=== PATIENT | female | born 1990 | race Caucasian/White ===

== ENCOUNTER 2024-01-20 11:00 | Outpatient (CLI) | payer MEDICARE, MEDICAID | END 2024-01-20 23:59 | disposition home or self-care (01) | LOC: RAD 11:00 | PROVIDERS: ATTEND Physician Assistant | DX: N20.0 Calculus of kidney (principal); K57.30 Diverticulosis of large intestine without perforation or abscess without bleeding | CPT/HCPCS: 74176 ==

== ENCOUNTER 2025-01-15 12:22 | Outpatient (CLI) | payer MEDICARE, MEDICAID ==
--- NOTE | 2025-01-16 07:57 | CARDIOLOGY REPORT ---
APPROVED REPORT EXAM: Comprehensive 2D, Doppler, and color-flow Echocardiogram. 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 144.4 cm/s AoV VTI 25.5 cm AO Peak GR. 8.5 mmHg AO Mean GR. 5 mmHg LVOT VTI 20.81 cm LVOT Peak Brandon. 120.2 cm/s TOMAS (VMAX) 2.35 cm2 TOMAS (VTI) 2.30 cm2 Mitral Valve MV E Velocity 101.3 cm/s MV DECEL TIME 230 ms MV A Velocity 95.8 cm/s MV PHT 62 ms E/A Ratio 1.1 MVA (PHT) 3.53 cm2 TDI E/Medial E' 9.4 Tricuspid Valve TR P. Velocity 135 cm/s TR Peak Gr. 7 mmHg Pulmonary Vein S2 Velocity 43.88 cm/s PVa [id number] msec LEFT VENTRICLE Normal LV size and wall thickness. Overall systolic function is low normal. LVEF is 55%. RIGHT VENTRICLE RV is normal size and function. ATRIA The left atrium size is normal. AORTIC VALVE Trileaflet AV appears mildly sclerotic without stenosis insufficiency. MITRAL VALVE Mild MV annular calcification without stenosis. Trace regurgitation. TRICUSPID VALVE TV appears structurally normal with trace regurgitation. PULMONIC VALVE Normal PV without stenosis, physiologic insufficiency. GREAT VESSELS Aortic root is normal in size. Ascending aorta is normal in size. PERICARDIUM Normal pericardium. No effusion. Other Information Study Quality: Adequate Conclusion Normal LV size and wall thickness. Overall systolic function is low normal. LVEF is 55%. RV is normal size and function. The left atrium size is normal. Trileaflet AV appears mildly sclerotic without stenosis insufficiency. Mild MV annular calcification without stenosis. Trace regurgitation. TV appears structurally normal with trace regurgitation. Normal pericardium. No effusion.
== END 2025-01-15 23:59 | disposition home or self-care (01) ==
LOC: RAD 12:22
PROVIDERS: ATTEND Physician Assistant
DX: Z15.89 Genetic susceptibility to other disease (principal); E66.01 Morbid (severe) obesity due to excess calories
CPT/HCPCS: 93306

== ENCOUNTER 2025-05-10 13:48 | Outpatient (CLI) | payer MEDICARE, MEDICAID ==
--- NOTE | 2025-05-12 19:42 | CONSULTATION ---
DATE OF CONSULTATION: 05/10/2025 DICTATING PHYSICIAN: Jazzy Zhao M.S., [facility] MODIFIED BARIUM SWALLOW STUDY REPORT REFERRING PHYSICIAN: Soraida Morgan PA-C. HISTORY OF PRESENT ILLNESS: The patient is a 35-year-old female and consents to this evaluation. In history obtained from the patient, the pt's mom and medical records, the patient reports symptoms of dysphagia including choking on food items a few times per year. The patient has a hard time with masticating with her mouth closed. She has had a history of dysphagia, having had a swallow study when she was less than 11 years old. The patient was on thickened liquids for a period of time, but is now on thin liquids. Her mom modifies her food items by cutting items such as steak into smaller pieces. The patient will begin to feel as if food items are stuck at the level of her larynx and then she produces stringy saliva or her emesis contains thoroughly chewed up food. MEDICATIONS: Prozac, Jencycla once daily orally, azelastine nasal spray, vitamin B12, vitamin D, multivitamin, fiber. CURRENT DIET: In terms of caffeine, the patient has diet Pepsi once weekly. She does not utilize tobacco products or drink alcohol. She consumes chocolate twice weekly. The patient has plant-based milk products and ice cream products. A typical breakfast consists of cereal. She snacks during the day on items such as cookies. A typical lunch is a sandwich. Dinner is eaten at 6:00 p.m. and may be something such as meatloaf, steak, hamburgers, or fettuccine. She has a dessert of ice cream sandwiches and goes to bed at 10 p.m. PARAMETERS: The patient is seated in a lateral 90-degree view and administered the usual protocol of thin and nectar-thick liquids, pureed and solid consistencies, as well as self-regulated boluses of thin liquids from the cup. RESULTS: In the oral stage of the swallow, lingual strength was mildly reduced. The patient utilized a lingual rocking motion to propel the bolus from the anterior to posterior oral cavity. It was noted that in 1 out of 2 administrations of the solid consistency, the patient utilized a very quick swallow with minimal mastication. There was no oral residue noted after the tail of the bolus passed for the liquid boluses, but for the solid bolus, the patient required 2 swallows. In the pharyngeal stage of the swallow, tongue base retraction was within functional limits. Swallow initiation was within functional limits. Anterior movement of the posterior pharyngeal wall was observed. Elevation of the hyothyroid complex was accomplished with full range of motion. There was no pharyngeal residue noted after the tail of the bolus passed. PES opening was within functional limits and at no time was the patient noted to penetrate or aspirate on any of the bolus sizes or consistencies. ANTERIOR-POSTERIOR VIEW: In the AP plane, the bolus split symmetrically between the piriform sinuses and there was proximal movement noted to the level of the clavicle. IMPRESSION: The patient demonstrates a mild oral swallowing disorder characterized by quickened mastication time. The patient also demonstrates a moderate pharyngoesophageal stage swallowing disorder characterized by proximal movement of the boluses at the level of the clavicle. DIAGNOSES: R13.11, dysphagia oral phase, R13.14, dysphagia pharyngoesophageal phase, R05.9, cough PATIENT EDUCATION: Immediately following modified barium swallow study, the patient and her mom were able to view the results. The normal anatomy of the swallowing mechanism was revealed. The patient was able to see the quick mastication time on the solid consistency as well as the proximal movement to the level of the clavicle. The patient and her mom were educated on making sure that the patient is chewing her food more thoroughly and continuing to cut food up into smaller pieces to assist with this. They were also educated on dietary modifications for laryngopharyngeal reflux disease should the patient continue. RECOMMENDATIONS: * It is recommended that the patient utilize safe swallowing strategies such as cutting up food items into smaller pieces when it is a tougher item such as steak and chewing her food more thoroughly. * It is recommended that the patient follow the aforementioned dietary modifications for laryngopharyngeal reflux disease. * Should dietary modifications not change the patient's symptom of emesis of stringy saliva, then it may be warranted for the patient to have a GI consult. LONG-TERM GOALS: The patient will demonstrate adequate hydration/nutrition with optimum safety and efficiency of swallow function on p.o. intake without overt signs and symptoms of aspiration for the highest possible diet level. FOIS: The FOIS was administered to establish and document a change in the functional eating activities of this patient over time. This is a 7-point scale with 1 indicating no oral intake and totally tube dependent and 7 indicating total oral intake with no restrictions. This patient received a 5 which indicates total oral intake of multiple consistencies requiring special preparation. Thank you very much for asking me to participate in the care of this kind patient. Should you have any questions regarding this evaluation or recommendations, please do not hesitate to contact me at [phone]. During this examination, 3:36 minutes of fluoroscopy time and 72.11 CAK mGy were utilized. Jazzy hZao M.S., [facility] TID: [id number] RECEIPT: [id number] YURY/SANDY MCCAULEYD
== END 2025-05-10 23:59 | disposition home or self-care (01) ==
LOC: RAD 13:48
PROVIDERS: ATTEND Physician Assistant
DX: R13.14 Dysphagia, pharyngoesophageal phase (principal); R13.10 Dysphagia, unspecified; R05.9 Cough, unspecified
CPT/HCPCS: 74230